=== PATIENT | male | born 1990 | race Caucasian/White ===

== ENCOUNTER 2020-07-02 10:35 | Emergency (ER) | payer BC, SELFPAY ==
[2020-07-02 10:40] VITALS: BP 123/80; PULSE 87; RESP 20; TEMP 36.9; O2SAT 97; BMI 34.2
--- NOTE | 2020-07-02 11:15 | HMH.EDUTC ---
[facility] [place] Disposition Clinical Impression: Pain, dental, Dental abscess Disposition: Home, Self-Care Condition on Discharge: Good Instructions: Tooth Abscess Additional Instructions: Follow up with your dentist as soon as they can see your this coming week. Take the medication as directed. Follow up with your primary care doctor. GO TO THE ER FOR ANY WORSENING OR LIFE THREATENING SYMPTOMS Prescriptions: Ibuprofen [Ibuprofen 800mg Tablet] 800 mg PO Q8HP PRN #30 tab PRN Reason: Moderate Pain Transmission Status: Received by [id number] Amoxicillin/Potassium Clav [Augmentin 875-125 Tablet] 1 tab PO Q12H 10 Days #20 tab Transmission Status: Received by [id number] Referrals: PCP,No [Primary Care Provider] - Time of Disposition: 11:24 Medical Decision Making - Medical Records Medical records reviewed: No: I reviewed the patient's medical records. - Johnson Inquiry Pt receiving controlled substance: No Vital Signs: 07/02/20 10:40 07/02/20 11:24 Temperature 98.4 F 98.4 F Temperature Source Oral Pulse Rate 87 Pulse Rate [Right Brachial] 87 Respiratory Rate 20 20 Blood Pressure 123/80 Blood Pressure [Right Arm] 123/80 Blood Pressure Mean [Right Arm] 94 Blood Pressure Position [Right Arm] Sitting 02 Sat by Pulse Oximetry 97 Oxygen Delivery Method Room Air [facility] [place] HPI - General Stated complaint: Tooth pulled on 225, causing tooth pain Time Seen by Provider: 07/02/20 11:15 Mode of Arrival: Ambulatory Source of Information: Patient, Spouse Limitations: No Limitations Description of Symptoms (Recalled from Triage Doc. by RN): PATIENT STATES HE HAD A TOP RIGHT TOOTH PULLED ON FRIDAY AND IS C/O PAIN IN THAT AREA AND RIGHT JAW HEENT Symptoms (Recalled from RN notes): Yes Resp Symptoms (Recalled from RN notes): No Skin Symptoms (Recalled from RN notes): No MS Symptoms (Recalled from RN notes): No Functional Status (Recalled from RN notes): WNL - History of Present Illness Provider Complaint: He states that he had a tooth pulled 3 days ago. He has been having pain and drainage from tooth extraction site. He denies any fever or chills. - Related Data Previous Rx's Medication Instructions Recorded Amoxicillin/Potassium Clav 1 tab PO Q12H 10 Days #20 tab 07/02/20 [Augmentin 875-125 Tablet] Ibuprofen [Ibuprofen 800mg 800 mg PO Q8HP PRN #30 tab 07/02/20 Tablet] Allergies Allergy/AdvReac Type Severity Reaction Status Date / Time No Known Allergies Allergy Verified 07/02/20 10:52 - Worker's Comp Is this a Worker's Comp case?: No [facility] History - Hepatitis A Screen Drug use history?: No High risk sexual behaviors?: No History of sexually transmitted infection?: No Currently employed?: No Childcare worker?: No Do you have indoor plumbing?: Yes Do you have electricity?: Yes Attestation statement:: This patient has been screened for Hepatitis A risk factors. I have reviewed the patient's past medical history: Yes - Social History Smoking Status: Never smoker Tobacco Type: smokeless tobacco # Packs/Day (cigarettes): 0 Alcohol Intake: never Occupational Status: other ROS Obtained: Yes All systems reviewed & no additional complaints - Constitutional Constitutional: Denies chills, Denies fever(s) - ENT Ears, Nose, Mouth, and Throat: Reports as per HPI Physical Exam - General General appearance: alert, in no apparent distress - Head Head exam: atraumatic, normocephalic, normal inspection - Eye Eye exam: Present: normal appearance, PERRL, EOMI - ENT ENT exam: Present: normal exam, normal oropharynx, mucous membranes moist, TM's normal bilaterally, normal external ear exam - Neck Neck exam: Present: normal inspection, full ROM, trachea midline. Absent: meningismus, lymphadenopathy - Chest Chest inspection: Present: normal inspection, symmetric chest wall rise. Absent: tenderness - Respiratory Respiratory exam: Presen
[2020-07-02 11:24] VITALS: BP 123/80; PULSE 87; RESP 20; TEMP 36.9; O2SAT 97
== END 2020-07-02 11:27 | disposition home or self-care (01) ==
PROVIDERS: Emergency Provider Nurse Practitioner Family
DX: K04.7 Periapical abscess without sinus (principal)
CPT/HCPCS: 99202; G0463

== ENCOUNTER 2021-02-04 12:47 | Emergency (ER) | payer BC, SELFPAY ==
[2021-02-04 12:50] VITALS: BP 127/78; PULSE 94; RESP 16; TEMP 36.6; O2SAT 97; BMI 31.0
[2021-02-04 12:57] VITALS: BMI 26.6
--- NOTE | 2021-02-04 12:58 | XR_ITS ---
PROCEDURE INFORMATION: Exam: XR Right Foot Exam date and time: 02/04/2021 12:58 PM Age: 30 years old Clinical indication: Injury or trauma; Fall; Blunt trauma; Foot; Right; Injury details: Patient fell on trampoline; Additional info: Injured on trampoline TECHNIQUE: Imaging protocol: XR Right foot. Views: 3 or more views. COMPARISON: CR XR ANKLE RT MIN 3V 02/04/2021 1:23 PM FINDINGS: Bones/joints: There is a subtle nondisplaced fracture of the medial malleolus present. Small calcaneal spur. There is no evidence of joint malalignment or dislocation. Soft tissues: Soft tissue swelling is present. IMPRESSION: 1. There is a subtle nondisplaced fracture of the medial malleolus present. 2. Soft tissue swelling is present. 3. No evidence of acute dislocation.
--- NOTE | 2021-02-04 12:58 | XR_ITS ---
PROCEDURE INFORMATION: Exam: XR Right Knee Exam date and time: 02/04/2021 12:58 PM Age: 30 years old Clinical indication: Injury or trauma; Fall; Blunt trauma; Knee; Right; Injury details: Patient fell on trampoline. ; Additional info: Injured on trampoline TECHNIQUE: Imaging protocol: XR Right knee. Views: 3 views. COMPARISON: CR XR TIBIA FIBULA RT 2V 02/04/2021 1:21 PM FINDINGS: Bones/joints: Nondisplaced fracture of the proximal fibula. No other fractures. There is no evidence of joint malalignment or dislocation. Soft tissues: Mild soft tissue swelling. IMPRESSION: 1. Nondisplaced fracture of the proximal fibula. 2. Mild soft tissue swelling. 3. No other fractures. 4. No evidence of acute dislocation.
--- NOTE | 2021-02-04 12:58 | XR_ITS ---
PROCEDURE INFORMATION: Exam: XR Right Tibia and Fibula Exam date and time: 02/04/2021 12:58 PM Age: 30 years old Clinical indication: Injury or trauma; Fall; Blunt trauma; Lower leg; Right; Injury details: Patient fell on trampoline. ; Additional info: Injured on trampoline TECHNIQUE: Imaging protocol: XR Right tibia and fibula. Views: 2 views. COMPARISON: No relevant prior studies available. FINDINGS: Bones/joints: There is a nondisplaced fracture of the medial malleolus present. Subtle fracture of the proximal fibula. There is no evidence of joint malalignment or dislocation. Soft tissues: Soft tissue swelling is present. IMPRESSION: 1. There is a nondisplaced fracture of the medial malleolus present. 2. Subtle fracture of the proximal fibula. 3. Soft tissue swelling is present. 4. No evidence of acute dislocation.
--- NOTE | 2021-02-04 12:58 | XR_ITS ---
PROCEDURE INFORMATION: Exam: XR Right Ankle Exam date and time: 02/04/2021 12:58 PM Age: 30 years old Clinical indication: Injury or trauma; Fall; Blunt trauma; Ankle; Right; Injury details: Patient fell on trampoline; Additional info: Injured on trampoline TECHNIQUE: Imaging protocol: XR Right ankle. Views: 3 or more views. COMPARISON: CR XR TIBIA FIBULA RT 2V 02/04/2021 1:21 PM FINDINGS: Bones/joints: There is no evidence of acute fracture. There is no evidence of joint malalignment or dislocation. Small calcaneal spur. Soft tissues: There are no soft tissue masses or fluid collections. IMPRESSION: 1. No evidence of acute fracture. 2. No evidence of acute dislocation.
--- NOTE | 2021-02-04 13:17 | HMH.EDUTC ---
[facility] [place] Clinical Impression: Leg fracture, right Qualifiers: Encounter type: initial encounter Fracture type: closed Qualified Code(s): S82.91XA - Unspecified fracture of right lower leg, initial encounter for closed fracture Disposition: Home, Self-Care Condition on Discharge: Good Instructions: How To Perform RICE (Rest, Ice, Compress, Elevate), Ketorolac Additional Instructions: *No weight bearing *RICE, Rest the extremity, Ice 15-20 minutes 3-4 times daily, Compress- wear the kameron wrap as discussed as much as possible to help reduce swelling and pain, Elevate the extremity when at rest *Kameron wrap is for support and help control swelling, use it except in the shower. Be sure that is not to tight but not to loose either *Elevate when resting *Ibuprofen 600-800mg every 6-8 hours as needed for pain an inflammation. If need something more can take Tylenol in between doses of Ibuprofen to help Immediately follow up with your family doctor for new or worsening of symptoms, or no noticeable improvement over the next 3-5 days Call Orthopedic office tomorrow morning for appointment with Dr Mg Return if needed Straight to ER if any life threatening symptoms Prescriptions: Ketorolac Tromethamine [Toradol 10mg tablet] 10 mg PO Q6HP PRN #20 tab MDD 40mg/day PRN Reason: Moderate Pain Transmission Status: Received by [id number] Referrals: Candace Govea [Primary Care Provider] - As needed Kris Mg MD [Staff Physician] - (Call office in the morning for appointment) Forms: Work/School Release Time of Disposition: 14:50 Medical Decision Making - Johnson Inquiry Pt receiving controlled substance: No Johnson was queried for this patient: No Vital Signs: 02/04/21 12:50 02/04/21 14:55 Temperature 97.8 F 97.8 F Temperature Source Oral Pulse Rate 94 H Pulse Rate [Right Brachial] 94 H Respiratory Rate 16 16 Blood Pressure 127/78 Blood Pressure [Right Arm] 127/78 Blood Pressure Mean [Right Arm] 94 Blood Pressure Source [Right Arm] Automatic Cuff Blood Pressure Position [Right Arm] Sitting 02 Sat by Pulse Oximetry 97 Oxygen Delivery Method Room Air Orders (Tests/Meds): ED MEDICATIONS Discontinued Medications Generic Name Dose Route Start Last Admin Trade Name Freq PRN Reason Stop Dose Admin Ketorolac Tromethamine 60 mg 02/04/21 13:20 02/04/21 13:45 Ketorolac 60mg/2ml Vial IM 02/04/21 13:21 60 mg ONCE ONE Administration - Radiology Data #1 Image(s): Knee Image Reviewed: Yes I have reviewed radiologist's interpretation IMPRESSION: Knee 1. Nondisplaced fracture of the proximal fibula. 2. Mild soft tissue swelling. 3. No other fractures. 4. No evidence of acute dislocation. #2 Image(s): Ankle, Foot/Toes Image Reviewed: Yes I have reviewed radiologist's interpretation IMPRESSION: 1. No evidence of acute fracture. 2. No evidence of acute dislocation Foot IMPRESSION: 1. There is a subtle nondisplaced fracture of the medial malleolus present. 2. Soft tissue swelling is present. 3. No evidence of acute dislocation. #3 Image(s): Tib/Fib Image Reviewed: Yes I have reviewed radiologist's interpretation IMPRESSION: 1. There is a nondisplaced fracture of the medial malleolus present. 2. Subtle fracture of the proximal fibula. 3. Soft tissue swelling is present. 4. No evidence of acute dislocation. [facility] [place] - General Stated complaint: AO 02/03/21 2200 Injury Right Knee and R leg Time Seen by Provider: 02/04/21 13:17 Mode of Arrival: Ambulatory Source of Information: Patient Limitations: No Limitations Description of Symptoms (Recalled from Triage Doc. by RN): PATIENT STATES HE WAS AT A [employer] YESTERDAY WHEN HIS RIGHT LEG BENT BACKWARDS UNDER HIM. C/O PAIN FROM RIGHT KNEE DOWN TO FOOT HEENT Symptoms (Recalled from RN notes): No Resp Symptoms (Recalled from RN notes): No Skin Symptoms (Recalled from RN notes)
[2021-02-04 14:55] VITALS: BP 127/78; PULSE 94; RESP 16; TEMP 36.6; O2SAT 97
== END 2021-02-04 14:59 | disposition home or self-care (01) ==
PROVIDERS: Emergency Provider Nurse Practitioner; PCP Nurse Practitioner Family
DX: S82.54XA Nondisplaced fracture of medial malleolus of right tibia, initial encounter for closed fracture (principal); S82.832A Other fracture of upper and lower end of left fibula, initial encounter for closed fracture; W09.8XXA Fall on or from other playground equipment, initial encounter; Y92.89 Other specified places as the place of occurrence of the external cause
CPT/HCPCS: 29505; 73562; 73590; 73610; 73630; 99203; G0463

== ENCOUNTER 2021-02-13 13:50 | Outpatient (RCR) | payer BC, SELFPAY | END 2021-02-13 14:20 | disposition home or self-care (01) | LOC: PT 13:50 | PROVIDERS: Visit Provider Orthopaedic Surgery | DX: S89.91XA Unspecified injury of right lower leg, initial encounter (principal); S82.831A Other fracture of upper and lower end of right fibula, initial encounter for closed fracture; S99.911A Unspecified injury of right ankle, initial encounter; S82.51XA Displaced fracture of medial malleolus of right tibia, initial encounter for closed fracture | CPT/HCPCS: 97760 ==

== ENCOUNTER → 2021-02-28 16:20 | Outpatient (CLI) | payer BC, SELFPAY ==
--- NOTE | 2021-02-28 16:20 | MR_ITS ---
PROCEDURE INFORMATION: Exam: MR Right Lower Extremity Joint Without Contrast, Knee Exam date and time: 02/28/2021 4:20 PM Age: 30 years old Clinical indication: Pain; Knee; Right; Additional info: RT knee pain TECHNIQUE: Imaging protocol: MR of the Right lower extremity joint without contrast. Exam focused on the knee. COMPARISON: CR XR KNEE RT 3V 02/04/2021 1:22 PM FINDINGS: Bones and cartilage: Small essentially nondisplaced fracture proximal fibular head. Additional bone bruising and slight impaction fracture of the periphery of the medial femoral condyle, and of the posterior medial aspect of the proximal tibia extending to the tibial spines. Moderate effusion. Joint spaces: No joint effusion. Bursae: Moderate Malave's cyst. Moderate soft tissue edema posterior to the knee joint. Medial meniscus: Unremarkable. No tear. Lateral meniscus: Unremarkable. No tear. Anterior cruciate ligament: Complete tear of the anterior cruciate ligament. Posterior cruciate ligament: Partial tear proximal fibers of the posterior cruciate ligament. Medial capsule and supporting structures: Suspect minimal grade 1 sprain medial collateral ligament without laxity. Lateral capsule and supporting structures: Torn origin of the lateral collateral ligament. Insertion of the popliteus tendon is indistinct and probably injured. Pattern of injury is suspicious for posterolateral corner disruption. Extensor mechanism of knee: Unremarkable. No tear. Muscles: Unremarkable. Soft tissues: See Lateral capsule and supporting structures finding. IMPRESSION: 1. Complete tear of the anterior cruciate ligament. 2. Partial tear proximal fibers of the posterior cruciate ligament. 3. Torn origin of the lateral collateral ligament. 4. Suspect minimal grade 1 sprain medial collateral ligament without laxity. 5. Insertion of the popliteus tendon is indistinct and probably injured. Pattern of injury is suspicious for posterolateral corner disruption. 6. Small essentially nondisplaced fracture proximal fibular head. Additional bone bruising and slight impaction fracture of the periphery of the medial femoral condyle, and of the posterior medial aspect of the proximal tibia extending to the tibial spines. 7. Moderate effusion.
== END ==
PROVIDERS: PCP Nurse Practitioner Family; Visit Provider Orthopaedic Surgery
DX: S89.91XA Unspecified injury of right lower leg, initial encounter (principal)
CPT/HCPCS: 73721

== ENCOUNTER → 2021-03-09 14:36 | Outpatient (CLI) | payer OTHER, SELFPAY | PROVIDERS: Visit Provider Orthopaedic Surgery | DX: Z20.822 Contact with and (suspected) exposure to COVID-19 (principal) | CPT/HCPCS: C9803; U0003; U0005 ==

== ENCOUNTER 2021-03-14 22:26 | Emergency (ER) | payer OTHER, SELFPAY ==
[2021-03-14 22:28] VITALS: BP 154/97; PULSE 117; RESP 16; TEMP 36.9; O2SAT 99; BMI 32.1
[2021-03-14 23:00] VITALS: BP 139/95; PULSE 98; O2SAT 98
[2021-03-14 23:19] LABS: Basophils # 0.1 K/mm3 (0-0.2); Basophils % 0.7 % (0.1-2.0); Chloride 96 mmol/L (98-107); Eosinophils # 0.1 K/mm3 (0.0-0.4); Eosinophils % 0.6 % (0.1-12.0); Hematocrit 40.8 % (42.0-52.0); Hemoglobin 13.8 g/dL (14.1-18.0); Lymphocytes # 2.2 K/mm3 (0.7-4.5); Lymphocytes % 19.7 % (10-50); Mean Corpuscular HGB Conc 33.9 g/dL (31.8-35.4); Mean Corpuscular Hemoglobin 31.9 pg (27.0-31.2); Mean Corpuscular Volume 94.1 fl (80-94); Mean Platelet Volume 8.1 fl (7.4-10.4); Monocytes # 0.8 K/mm3 (0.1-1.0); Monocytes % 6.7 % (1.7-9.3); Neutrophils # 8.1 K/mm3 (1.8-7.8); Neutrophils % 72.3 % (37.0-80.0); Platelet Count 321 K/mm3 (142-424); Red Blood Count 4.33 M/mm3 (4.60-6.20); White Blood Count 11.3 K/mm3 (4.8-10.8)
[2021-03-14 23:20] LABS: Potassium 3.3 mmoL/L (3.5-5.1); Sodium 135 mmol/L (136-145)
[2021-03-14 23:22] LABS: Alanine Aminotransferase 29 U/L (12-78); Alkaline Phosphatase 61 U/L (38-126); Anion Gap 12.3 mEq/L (5-15); Aspartate Amino Transferase 33 U/L (17-59); Bilirubin,Total 0.8 mg/dl (0.2-1.3); Blood Urea Nitrogen 2 mg/dl (9-20); Carbon Dioxide 30 mmol/L (22.0-30.0); Creatinine Clearance Estimated 247 mL/min (50-200); Estimated Glomerular Filt Rate 156 ml/min (>60); GFR (African American) 189 ML/MIN (>60)
[2021-03-14 23:23] LABS: Albumin Level 4.3 g/dl (3.5-5.0); Albumin/Globulin Ratio 1.5 (1.1-1.8); Calcium 9.3 mg/dl (8.4-10.2); Globulin 2.9 g/dL (1.3-3.2); Glucose 134 mg/dl (74-100); Total Protein,Serum 7.2 g/dl (6.3-8.2)
[2021-03-14 23:31] VITALS: BP 150/96; PULSE 98; O2SAT 99
[2021-03-15] VITALS: BP 153/92; PULSE 112; O2SAT 99
[2021-03-15 00:30] VITALS: BP 143/96; PULSE 101; O2SAT 99
--- NOTE | 2021-03-15 00:59 | HMH.EDNVD ---
ED Disposition Clinical Impression: Vomiting Qualifiers: Vomiting type: unspecified Vomiting Intractability: non-intractable Nausea presence: with nausea Qualified Code(s): R11.2 - Nausea with vomiting, unspecified Disposition: Home, Self-Care Condition on Discharge: Good Instructions: DI for Nausea -- Adult Additional Instructions: fluids and hold motrin and call pcp for follow up Prescriptions: ondansetron HCL [Zofran 4mg Tab] 4 mg PO TID #21 tab Transmission Status: Pending to [id number] Referrals: Candace Govea [Primary Care Provider] - - Critical Care Critical Care Time: No Attestation: On 03/14/21, the high probability of a clinically significant, sudden or life threatening deterioration of the following system(s) required my full and direct attention, intervention and personal management. The time I documented below is in addition to time spent performing reported procedures but includes the following listed in this critical care notation. Medical Decision Making - Medical Records Medical records reviewed: Yes: I reviewed the patient's medical records. - Johnson Inquiry Pt receiving controlled substance: No Vital Signs: 03/14/21 22:28 03/14/21 23:00 03/14/21 23:31 Temperature 98.5 F Temperature Source Oral Pulse Rate 98 H 98 H Pulse Rate [Right] 117 H Respiratory Rate 16 Blood Pressure 139/95 H 150/96 H Blood Pressure [Right Arm] 154/97 H Blood Pressure Mean [Right Arm] 116 02 Sat by Pulse Oximetry 99 98 99 Oxygen Delivery Method Room Air Room Air 03/15/21 00:00 03/15/21 00:30 Temperature Temperature Source Pulse Rate 112 H 101 H Pulse Rate [Right] Respiratory Rate Blood Pressure 153/92 H 143/96 H Blood Pressure [Right Arm] Blood Pressure Mean [Right Arm] 02 Sat by Pulse Oximetry 99 99 Oxygen Delivery Method Room Air Room Air - Lab Data Lab results reviewed: Yes: I reviewed the patient's lab results. Lab Results 03/14/21 22:38: WBC 11.3 H, RBC 4.33 L, Hgb 13.8 L, Hct 40.8 L, MCV 94.1 H, MCH 31.9 H, MCHC 33.9, RDW 13.0, Plt Count 321, MPV 8.1, Neut % (Auto) 72.3, Lymph % (Auto) 19.7, [place] % (Auto) 6.7, Eos % (Auto) 0.6, Baso % (Auto) 0.7, Neut # (Auto) 8.1 H, Lymph # (Auto) 2.2, [place] # (Auto) 0.8, Eos # (Auto) 0.1, Baso # (Auto) 0.1 03/14/21 22:38: Sodium 135 L, Potassium 3.3 L, Chloride 96 L, Carbon Dioxide 30, Anion Gap 12.3, BUN 2 L, Creatinine 0.60 L, Estimated Creat Clear 247, Estimated GFR 156, Est GFR ( Amer) 189, Glucose 134 H, Calcium 9.3, Total Bilirubin 0.8, AST 33, ALT 29, Alkaline Phosphatase 61, Total Protein 7.2, Albumin 4.3, Globulin 2.9, Albumin/Globulin Ratio 1.5 Result diagrams: 03/14/21 22:38 03/14/21 22:38 Orders (Tests/Meds): ED MEDICATIONS Generic Name Dose Route Start Last Admin Trade Name Freq PRN Reason Stop Dose Admin Sodium Chloride 1,000 mls @ 999 mls/hr 03/14/21 22:45 03/14/21 22:53 Sod Chlor 0.9% 1000ml Bag IV 03/14/21 23:45 999 mls/hr .Q1H1M MACEY Administration Sodium Chloride 1,000 mls @ 999 mls/hr 03/15/21 01:15 03/15/21 01:08 Sod Chlor 0.9% 1000ml Bag IV 03/15/21 02:15 999 mls/hr .Q1H1M MACEY Administration Discontinued Medications Generic Name Dose Route Start Last Admin Trade Name Freq PRN Reason Stop Dose Admin Ondansetron HCl 4 mg 03/14/21 22:49 03/14/21 22:53 Ondansetron 4mg/2ml Vial IV 03/14/21 22:50 4 mg ONCE ONE Administration Promethazine HCl 25 mg 03/14/21 22:42 03/14/21 22:53 Promethazine Hcl 25mg/Ml 1ml Vial IV 03/14/21 22:43 25 mg ONCE ONE Administration Sodium Chloride 25 ml 03/14/21 22:42 03/14/21 23:12 Sodium Chloride 0.9% 25ml Bag IV 03/14/21 22:43 25 ml ONCE ONE Administration ORDERS Category Date Time Status Lactic Acid Stat Lab 03/15/21 00:49 Ordered Blood Culture Stat Micro 03/15/21 00:49 Ordered Medical Decision Narrative: stsable exam and labs - post surg vomiting Nausea/Vomiting/Diarrhea
[2021-03-15 01:28] VITALS: BP 119/62; PULSE 87; RESP 22; TEMP 37; O2SAT 99
[2021-03-15 01:29] VITALS: BP 134/74; PULSE 81; RESP 16; TEMP 36.9; O2SAT 99
== END 2021-03-15 01:30 | disposition home or self-care (01) ==
PROVIDERS: Emergency Provider Emergency Medicine; PCP Nurse Practitioner Family
DX: R11.2 Nausea with vomiting, unspecified (principal)
CPT/HCPCS: 80053; 85025; 96365; 96375; 99282; J2405

== ENCOUNTER 2021-05-08 10:00 | Outpatient (RCR) | payer OTHER, SELFPAY | END 2021-06-20 07:04 | disposition home or self-care (01) | LOC: PT.CARL 10:00 | PROVIDERS: PCP Nurse Practitioner Family; Visit Provider Orthopaedic Surgery | DX: S83.511D Sprain of anterior cruciate ligament of right knee, subsequent encounter (principal) | CPT/HCPCS: 97010; 97014; 97110; 97112; 97116; 97140; 97163; 97164; G0283 ==

== ENCOUNTER → 2022-03-26 09:35 | Outpatient (CLI) | payer BC, SELFPAY ==
[2022-03-26 10:13] LABS: Basophils # 0.2 K/mm3 (0-0.2); Basophils % 2.4 % (0.1-2.0); Eosinophils # 0.1 K/mm3 (0.0-0.4); Eosinophils % 2.1 % (0.1-12.0); Hematocrit 53.3 % (42.0-52.0); Hemoglobin 17.9 g/dL (14.1-18.0); Lymphocytes # 2.1 K/mm3 (0.7-4.5); Lymphocytes % 32.2 % (10-50); Mean Corpuscular HGB Conc 33.7 g/dL (31.8-35.4); Mean Corpuscular Hemoglobin 31.9 pg (27.0-31.2); Mean Corpuscular Volume 94.9 fl (80-94); Mean Platelet Volume 7.6 fl (7.4-10.4); Monocytes # 0.5 K/mm3 (0.1-1.0); Neutrophils # 3.7 K/mm3 (1.8-7.8); Neutrophils % 56.3 % (37.0-80.0); Platelet Count 353 K/mm3 (142-424); Red Blood Count 5.62 M/mm3 (4.60-6.20); Red Cell Distribution Width 13.8 % (11.5-17.5); White Blood Count 6.6 K/mm3 (4.8-10.8)
[2022-03-26 10:28] LABS: Chloride 98 mmol/L (98-107); Sodium 140 mmol/L (136-145)
[2022-03-26 10:31] LABS: Alanine Aminotransferase 66 U/L (12-78); Albumin Level 4.6 g/dl (3.5-5.0); Albumin/Globulin Ratio 1.5 (1.1-1.8); Alkaline Phosphatase 81 U/L (38-126); Aspartate Amino Transferase 48 U/L (17-59); Bilirubin,Total 0.6 mg/dl (0.2-1.3); Blood Urea Nitrogen 9 mg/dl (9-20); Calcium 10.1 mg/dl (8.4-10.2); Carbon Dioxide 32 mmol/L (22.0-30.0); Estimated Glomerular Filt Rate 97 ml/min (>60); GFR (African American) 118 ML/MIN (>60); Globulin 3.1 g/dL (1.3-3.2); Glucose 112 mg/dl (74-100); Total Protein,Serum 7.7 g/dl (6.3-8.2)
[2022-03-26 10:35] LABS: Amphetamine/Metha Screen,Urine Negative ng/ml (<1000); Benzodiazepines Screen,Urine Negative ng/ml (<200)
[2022-03-26 10:36] LABS: Barbiturates Screen,Urine Negative ng/ml (<200)
[2022-03-26 10:38] LABS: Cannabinoid Screen,Urine Negative ng/ml (<50)
[2022-03-26 10:39] LABS: Cocaine Screen,Urine Negative ng/ml (<300); Methadone Screen,Urine Negative ng/ml (<300)
[2022-03-26 10:40] LABS: Phencyclidine Screen,Urine Negative ng/ml (<25)
[2022-03-26 10:41] LABS: Opiate Screen,Urine Negative ng/ml (<300)
[2022-03-26 10:55] LABS: Triiodothryronine (T3) Uptake 43 % (23.5-40.5)
[2022-03-26 10:56] LABS: Free Thyroxine Index 2.4 ug/dL (5.93-13.13); T4 (Thyroxine) 5.6 ug/dl (5.53-11.0)
[2022-03-26 11:10] LABS: Thyroid Stimulating Hormone 1.86 uIU/mL (0.465-4.68)
== END ==
PROVIDERS: PCP Nurse Practitioner Family; Visit Provider Nurse Practitioner Psychiatric/Mental Health
DX: Z00.00 Encounter for general adult medical examination without abnormal findings (principal); Z02.83 Encounter for blood-alcohol and blood-drug test; Z79.899 Other long term (current) drug therapy
CPT/HCPCS: 36415; 80053; 80305; 83036; 84436; 84443; 84479; 85025